=== PATIENT | female | born 1975 ===

== ENCOUNTER 2021-05-04 20:33 | Emergency (ER) | payer SELFPAY | END 2021-05-04 21:50 | disposition left against medical advice (07) | LOC: DL.ED 20:33 | DX: Z53.21 Procedure and treatment not carried out due to patient leaving prior to being seen by health care provider (principal) | CPT/HCPCS: 99282 ==

== ENCOUNTER 2022-05-01 13:47 | Emergency (ER) | payer MEDICARE, MEDICAID ==
[2022-05-01] MEDS ORDERED: Mupirocin Oint 22 GM Tube TOP ONE (14:37)
[2022-05-01] MEDS ORDERED: Acetaminophen 500 MG Tab PO ONE (14:38)
[2022-05-01] MEDS ORDERED: Ketorolac 30 MG/ML SDV IM ONE (14:38)
[2022-05-01] MEDS ORDERED: Ketorolac 30 MG/ML SDV ONE (14:52)
== END 2022-05-01 15:32 | disposition home or self-care (01) ==
LOC: DL.ED 13:47
DX: S30.810A Abrasion of lower back and pelvis, initial encounter (principal); F17.210 Nicotine dependence, cigarettes, uncomplicated
CPT/HCPCS: 96372; 99282; A9270; J1885